=== PATIENT | male | born 1950 | race Caucasian/White ===

== ENCOUNTER 2017-05-25 10:53 | Emergency (ER) | payer OTHER, BC ==
[2017-05-25 11:06] VITALS: BMI 25.8
[2017-05-25 11:22] LABS: BASOPHIL 0.6 % (0-2.0); EOSINOPHIL 2.4 % (0-4.5); MCH 33.3 pg (25.7-33.7); MCHC 34.3 g/dl (32.0-35.9); MEAN CELL VOLUME 97.1 fl (80-96); MEAN PLT VOLUME 7.1 fl (7.5-11.1); NEUTROPHILS 53.4 % (42.8-82.8); PLATELET COUNT 232 K/MM3 (134-434); RDW 13.8 % (11.9-15.9); WHITE BLOOD COUNT 10.7 K/mm3 (4.0-10.0)
--- NOTE | 2017-05-25 11:23 | PDOC ---
Attending Attestation - Resident Resident Name: Kvng Foster - ED Attending Attestation I have performed the following: I have examined & evaluated the patient, The case was reviewed & discussed with the resident, I agree w/resident's findings & plan, Exceptions are as noted - HPI HPI: 05/25/17 11:21 Partial Amputation two digits right hand... - Physicial Exam PE: 05/25/17 11:22 Partial Amputations will need hand surgeon - Medical Decision Making 05/25/17 11:[address] Foster's Assessment and Plan
[2017-05-25 11:41] LABS: INR 1.01 (0.82-1.09); PROTHROMBIN TIME (PATIENT) 11.1 SEC (9.98-11.88)
--- NOTE | 2017-05-25 11:46 | PDOC ---
History of Present Illness - General Chief Complaint: Laceration Stated Complaint: LACERATION Time Seen by Provider: 05/25/17 11:08 Past History - Past Medical History Allergies/Adverse Reactions: Allergies Allergy/AdvReac Type Severity Reaction Status Date / Time No Known Allergies Allergy Verified 05/25/17 10:55 - Psycho/Social/Smoking Cessation Hx Suicidal Ideation: No Smoking History: Never smoked *Physical Exam - Vital Signs Last Vital Signs Temp Pulse Resp BP Pulse Ox 97.9 F 49 L 20 93/46 98 05/25/17 10:55 05/25/17 10:55 05/25/17 10:55 05/25/17 10:55 05/25/17 10:55 ED Treatment Course - LABORATORY CBC & Chemistry Diagram: 05/25/17 11:20 05/25/17 11:20 Medical Decision Making - Medical Decision Making 05/25/17 14:05 Patient seen and hand evaluated. Specialty needed - Patient to be transferred to [facility]. *DC/Admit/Observation/Transfer Diagnosis at time of Disposition: Partial traumatic transphalangeal amputation of finger Qualifiers: Encounter type: initial encounter Qualified Code(s): S68.629A - Partial traumatic transphalangeal amputation of unspecified finger, initial encounter - Discharge Dispostion Disposition: TRANSFER ACUTE CARE/OTHER HOSP - Referrals Referrals: Boubacar Fraire [Primary Care Provider] - - Transfer to Acute Care Facility Receiving Facility: [facility] Accepting Physician:: Bibiana
[2017-05-25 11:51] LABS: ALBUMIN 4.2 g/dl (3.4-5.0); ANION GAP 14 (8-16); BILIRUBIN,TOTAL 1.4 mg/dL (0.2-1.0); CALCIUM 9.4 mg/dL (8.5-10.1); CO2 24 mmol/L (21-32); CREATININE 1.1 mg/dL (0.7-1.3); GLUCOSE,RANDOM 126 mg/dL (74-106); SGOT/AST 23 U/L (15-37); SGPT/ALT 36 U/L (12-78); TOT PROT 7.2 g/dl (6.4-8.2)
[2017-05-25 11:52] LABS: ALK PHOS 44 U/L (45-117)
[2017-05-25] MEDS ORDERED: CEFAZOLIN (PRE-DOCKED) 1 GM in DEXTROSE 5%-WATER - 50 ML IVPB ONE (12:23)
[2017-05-25] MEDS ORDERED: MAGNESIUM CITRATE 300 ML BOTTLE PO ONE (12:26)
[2017-05-25] MEDS ORDERED: CEFAZOLIN (PRE-DOCKED) 50 ML IVPB ONE (12:48)
[2017-05-25] MEDS ORDERED: DIPHTH,PERTUSS(ACELL),TET 0.5 ML DISP.SYRIN IM ONE (12:55)
[2017-05-25 14:28] VITALS: BP 127/69; PULSE 74; TEMP 97.8
== END 2017-05-25 14:25 | disposition short-term general hospital (02) ==
LOC: JER 10:53
PROC: 3E0234Z Introduction of Serum, Toxoid and Vaccine into Muscle, Percutaneous Approach (ICD-10-PCS; principal; 2017-05-25)
PROC: 3E03329 Introduction of Other Anti-infective into Peripheral Vein, Percutaneous Approach (ICD-10-PCS; 2017-05-25)
DX: S68.62 Partial traumatic transphalangeal amputation of other and unspecified finger (principal); W29.8XXA Contact with other powered hand tools and household machinery, initial encounter; Y93.89 Activity, other specified; Y92.89 Other specified places as the place of occurrence of the external cause
CPT/HCPCS: 36415; 73130-TC-RT; 80053; 85025; 85610; 86850; 86900; 86901; 90715; 99284-25